=== PATIENT | female | born 1995 | race African-American/Black ===

== ENCOUNTER 2017-05-14 15:50 | Inpatient (IN) | payer OTHER ==
[2017-05-14 16:29] VITALS: BMI 27.5
[2017-05-14] MEDS ORDERED: Misoprostol 200 MCG TAB PR PRN (17:32)
[2017-05-14] MEDS ORDERED: Ondansetron HCl/PF 4 MG/2 ML Vial IVP PRN (17:32)
[2017-05-14] MEDS ORDERED: Promethazine HCl 25 MG/ML VIAL IM PRN (17:32)
[2017-05-14] MEDS ORDERED: Ibuprofen 800 MG TAB PO PRN (17:32)
[2017-05-14] MEDS ORDERED: Lidocaine 1% (PF) 30 ML VIAL SC PRN (17:32)
[2017-05-14] MEDS ORDERED: Carboprost 250 MCG/ML AMP IM PRN (17:32)
[2017-05-14] MEDS ORDERED: Acetaminophen 500 MG TAB PO PRN (17:32)
[2017-05-14] MEDS ORDERED: HYDROcodone/Acetaminophen 5/325 mg Tablet PO PRN ×2 (17:32)
[2017-05-14] MEDS ORDERED: Diphenoxylate HCl/Atropine Tablet PO PRN ×2 (17:32)
[2017-05-14] MEDS ORDERED: LR / Pitocin 40 units/1000 ml 1,000 ML IV PRN (17:32)
[2017-05-14 17:34] LABS: #Eosinphils 0.1 thou/uL (0.0-0.7); #Lymphocytes 1.7 thou/uL (1.20-3.40); #Monocytes 0.5 thou/uL (0.11-0.59); #Neutrophils 4.2 thou/uL (1.40-6.50); %Basophils 0.3 % (0.0-1.0); %Eosinophils 0.8 % (0.0-10.0); %Lymphocytes 26.3 % (21.0-51.0); %Monocytes 7.7 % (0.0-10.0); Hematocrit 23.8 % (36.0-47.0); Mean Platelet Volume 7.9 fL (7.4-10.4); Red Blood Cell (RBC) Count 2.96 mill/uL (4.20-5.40); White Blood Cell (WBC) Count 6.5 thou/uL (4.8-10.8)
[2017-05-14] MEDS ORDERED: LR 500 ML/Oxytocin 10 units 500 ML IV SCH (17:45)
--- NOTE | 2017-05-14 17:48 | PDOC.LDHP ---
Labor and Delivery H&P Chief complaint: contractions HPI: 22 y/o at 39w2d, patient of Theo Jose Rafael, presents with contractions every 5 minutes. Denies VB, LOF, or decreased FM. Has had more headaches over the last few days and increased swelling. ROS neg for HEENT, cv, pulm, gi, gu, neuro, psych, skin, musculoskeletal, or constitutional symptoms other than mentioned above. OB History Details: 2 prior SABs Current complications: none Past Medical History: None Current medications: pre- vitamins, iron Previous surgical history: none Allergies/Adverse Reactions: Allergies Allergy/AdvReac Type Severity Reaction Status Date / Time amoxicillin Allergy Mild Emesis Verified 05/14/17 16:22 Social history: none - Physical Exam Vital signs reviewed and normal: yes General: NAD, breathing through contractions Lungs: nonlabored breathing Abdomen: gravid Extremeties: no edema FHT: category 1 (140s, mod variability, + accels, late decel initially but resolved.) [place] contractions every: 5-6 mins - Vaginal Exam cm dilated: 3 (changed from 1cm in 1 hour; bright light exam negative) Effacement: 90% Station: -1 - OB Labs Blood type: A RH: positive Antibody Screen: negative HIV: negative RPR: negative HEPSAg: negative 1 hour GCT: positive 3 hour GTT: negative GBS: unknown Rubella: immune - Assessment L&D Assessment: term patient in labor elevated blood pressures at term - Plan Plan: admit to L&D, labor augmentation if indicated, informed consent obtained, anesthesia consult for pain management -: HSV+: bright light exam negative; asymptomatic PIH labs pending Dr. Mantilla notified
[2017-05-14 17:56] LABS: ALT (SGPT) 12 U/L (8-55); AST (SGOT) 25 U/L (5-34); Alkaline Phosphatase 213 U/L (40-150); Anion Gap 10 mmol/L (10-20); BUN (Urea Nitrogen) 12 mg/dL (7.0-18.7); Bilirubin, Total 0.2 mg/dL (0.2-1.2); Calc. Creatinine Clearance 179 mL/min (70-130); Calcium 8.8 mg/dL (7.8-10.44); Carbon Dioxide 22 mmol/L (22-29); Chloride 108 mmol/L (98-107); Estimated GFR-MDRD Greater than 90; Protein, Total 6.3 g/dL (6.0-8.3)
[2017-05-14] MEDS: Fentanyl 4 mcg/Marc 0.1% Cadd 100 ML ONE (23:56)
[2017-05-14] MEDS: Lactated Ringer's 1,000 ML IV SCH (23:56)
[2017-05-15] MEDS ORDERED: Fentanyl 4 mcg/Marc 0.1% Cadd 100 ML ONE (01:09)
[2017-05-15] MEDS ORDERED: ePHEDrine/0.9% NaCl/PF SYRINGE 50 mg/10 ml SLOW IVP PRN (01:11)
[2017-05-15] MEDS ORDERED: Promethazine HCl 25 MG/ML VIAL IM PRN (01:11)
[2017-05-15] MEDS ORDERED: diphenhydrAMINE 50 MG/ML VIAL IVP PRN (01:11)
[2017-05-15] MEDS ORDERED: Eucerin (Mineral Oil/Petrolatum,White) 30 gm Jar TOP PRN (01:11)
[2017-05-15] MEDS ORDERED: Naloxone HCl 0.4 mg/ml Vial IVP PRN ×2 (01:11)
[2017-05-15] MEDS ORDERED: Ondansetron HCl/PF 4 MG/2 ML Vial IVP PRN (01:11)
[2017-05-15] MEDS ORDERED: Lactated Ringer's 500 ML IV PRN (01:11)
[2017-05-15] MEDS ORDERED: Acetaminophen 325 MG TAB PO PRN (01:11)
[2017-05-15] MEDS ORDERED: Communication Order-Pharmacy FS SCH (01:15)
[2017-05-15] MEDS ORDERED: Fentanyl 4mcg/Marcaine 0.1% Cassette 100 ML EPIDURAL SCH (01:15)
[2017-05-15] MEDS: Fentanyl 4 mcg/Marc 0.1% Cadd 100 ML ONE (02:31)
[2017-05-15] MEDS ORDERED: Benzocaine/Menthol 20-0.5% 60 ML CAN TOP PRN (04:07)
[2017-05-15] MEDS ORDERED: Lanolin Ointment 7 GM TUBE TOP PRN (04:07)
[2017-05-15] MEDS ORDERED: Milk Of Magnesia 30 ML UDCUP PO PRN (04:07)
[2017-05-15] MEDS ORDERED: Adacel (T-DAP) 0.5 ML VIAL IM ONE (04:07)
[2017-05-15] MEDS ORDERED: diphenhydrAMINE 25 MG CAP PO PRN (04:07)
[2017-05-15] MEDS ORDERED: LR / Pitocin 40 units/1000 ml 1,000 ML IV SCH (04:07)
[2017-05-15] MEDS ORDERED: Bisacodyl 10 MG SUPP PR PRN (04:07)
[2017-05-15] MEDS: Lactated Ringer's 1,000 ML IV SCH (04:47)
--- NOTE | 2017-05-15 05:45 | DN ---
DATE OF PROCEDURE: 05/15/2017 at 2 a.m. PREOPERATIVE DIAGNOSIS: Term . POSTOPERATIVE DIAGNOSIS: Term . PROCEDURE: Spontaneous vaginal delivery with repair of secondary midline episiotomy, Pitocin augment ation. SURGEON: Theo Mantilla M.D. PROCEDURE: This 22-year-old black female taken to delivery room, complete and pushing. The pa tient prepped and draped sterilely. Delivered a baby girl with Apgars 8 at 1 minute and 9 at 5 minut es. Baby did breathe and cry vigorously upon delivery. Delivered placenta, 3-vessel intact. Repair ed a secondary midline episiotomy with 3-0 chromic. Estimated blood loss was 350 mL. Mother and bab y did well.
[2017-05-15] MEDS: Acetaminophen/Codeine 30-300mg Tablet PO PRN ×2 (08:55→22:24)
[2017-05-15] MEDS: Ferrous Sulfate 325 MG TAB PO SCH ×2 (08:58→17:08)
[2017-05-15] MEDS: Prenatal Vitamin 1 TAB PO SCH (08:59)
[2017-05-15] MEDS: Docusate (Surfak) 240 MG CAP PO SCH ×2 (08:59→22:21)
[2017-05-15] MEDS ORDERED: Bupivacaine/Epinephrine 0.25% 30 ML VIAL ONE (14:44)
[2017-05-16 05:10] LABS: Hematocrit 19.5 % (36.0-47.0); Mean Platelet Volume 7.7 fL (7.4-10.4); Red Blood Cell (RBC) Count 2.42 mill/uL (4.20-5.40)
[2017-05-16] MEDS: Ferrous Sulfate 325 MG TAB PO SCH ×2 (09:34→18:00)
[2017-05-16] MEDS: Docusate (Surfak) 240 MG CAP PO SCH (09:34)
[2017-05-16] MEDS: Prenatal Vitamin 1 TAB PO SCH (09:34)
[2017-05-16] MEDS: Acetaminophen/Codeine 30-300mg Tablet PO PRN ×2 (09:36→18:00)
[2017-05-17] MEDS: Docusate (Surfak) 240 MG CAP PO SCH ×2 (07:39→08:39)
[2017-05-17 08:15] VITALS: BP 133/83; TEMP 98.3
[2017-05-17] MEDS: Ferrous Sulfate 325 MG TAB PO SCH (08:39)
[2017-05-17] MEDS: Prenatal Vitamin 1 TAB PO SCH (08:39)
[2017-05-17] MEDS: Acetaminophen/Codeine 30-300mg Tablet PO PRN (08:42)
[2017-05-17 08:47] LABS: #Basophils 0.1 thou/uL (0.0-0.2); #Eosinphils 0.1 thou/uL (0.0-0.7); #Lymphocytes 1.9 thou/uL (1.20-3.40); #Monocytes 0.6 thou/uL (0.11-0.59); #Neutrophils 6.4 thou/uL (1.40-6.50); %Basophils 0.9 % (0.0-1.0); %Eosinophils 1.2 % (0.0-10.0); %Lymphocytes 20.5 % (21.0-51.0); %Monocytes 6.3 % (0.0-10.0); Hematocrit 21.5 % (36.0-47.0); Mean Platelet Volume 7.7 fL (7.4-10.4); Red Blood Cell (RBC) Count 2.66 mill/uL (4.20-5.40)
[2017-05-17 09:10] LABS: Iron 24 ug/dL (50-170)
== END 2017-05-17 14:00 | disposition home or self-care (01) | DRG 775 ==
LOC: L&D/OP 15:50 → L&D 17:50 → 3SW 05-15 04:05
PROVIDERS: ADMIT Family Medicine; ATTEND Family Medicine
PROC: 10E0XZZ Delivery of Products of Conception, External Approach (ICD-10-PCS; principal; 2017-05-15)
PROC: 0KQM0ZZ Repair Perineum Muscle, Open Approach (ICD-10-PCS; 2017-05-15)
DX: O70.1 Second degree perineal laceration during delivery (principal); Z37.0 Single live birth; Z3A.39 39 weeks gestation of pregnancy
CPT/HCPCS: 36415; 80053; 82570; 82728; 83540; 83550; 84156; 85025; 85027; 86780; 86850; 86900; 86901; 87340; J2001; J2405; J7120

== ENCOUNTER 2018-11-07 12:35 | Outpatient (CLI) | payer OTHER ==
--- NOTE | 2018-11-07 13:38 | ULT ---
Complete obstetrical ultrasound INDICATION: 36 weeks gestation; evaluate well being and anatomy TECHNIQUE: Grayscale, M-mode Doppler and Doppler images were obtained of the abdomen and pelvis to ev aluate the patient's known . COMPARISON: None. FINDINGS: Number of gestations: Single. Presentation: Cephalic. Placental location: Anterior Previa: No evidence for previa. Cervical length: Not assessed PATRICK: 8.0 cm. heart rate: 149 bpm. Biparietal diameter: 8.89cm, 36 weeks 0 days, Not calculated.. Head circumference: 32.17 cm, 36 weeks 3 days, Not calculated. Abdominal circumference: 32.61 cm, 36 weeks 4 days, Not calculated. Femoral length: 6.94cm, 35 weeks 5 days, Not calculated. Estimated weight: 2877 g +/- 420g 6 lbs. 5 oz., 54th percentile SURVEY: head: Normal appearing. Cerebellum: Not well assessed. Cisterna magna: Not well assessed Lateral ventricles: Not well assessed 4 chamber heart: Normal appearing.. Stomach: Normal appearing. Kidneys: Normal appearing. Cord insertion: Normal appearing. Bladder: Normal appearing. Spine: Normal appearing. Lips and nose: Normal appearing. Extremities: Not well assessed Three-vessel CORD: Normal appearing. The average gestational age by ultrasound is 36 weeks 2 dayswith estimated due date of December 03, 2018. The estimated dates by clinical data is 36 weeks 1 daywith estimated due date of December 04, 2018. IMPRESSION: 1. Single live intrauterine gestation with size and dates as above. 2. The PATRICK was 8 cm. This is just about 5th percentile for gestational age. Clinical sonographic foll ow-up is recommended.
== END 2018-11-07 12:36 | disposition home or self-care (01) ==
LOC: BICULT 12:35
PROVIDERS: ATTEND Family Medicine
DX: Z34.93 Encounter for supervision of normal pregnancy, unspecified, third trimester (principal); Z3A.36 36 weeks gestation of pregnancy
CPT/HCPCS: 76805; 76815

== ENCOUNTER 2018-11-20 21:25 | Inpatient (IN) | payer OTHER ==
[2018-11-20] MEDS ORDERED: Ondansetron PF 4 MG/2 ML Vial IVP PRN (22:50)
[2018-11-20] MEDS ORDERED: Lactated Ringer's 1,000 ML IV SCH (22:50)
[2018-11-20] MEDS ORDERED: Butorphanol Tartrate 1 MG/ML VIAL SLOW IVP PRN (22:50)
[2018-11-20] MEDS ORDERED: Acetaminophen 500 MG TAB PO PRN (22:50)
[2018-11-20] MEDS ORDERED: Promethazine HCl 25 MG/ML VIAL IM PRN (22:51)
[2018-11-20] MEDS ORDERED: Lidocaine 1% (PF) 30 ML VIAL SC PRN (23:00)
[2018-11-20] MEDS ORDERED: NS w/ Oxytocin 10 units 500 ML IV SCH ×2 (23:00)
[2018-11-20] MEDS ORDERED: Misoprostol 200 MCG TAB RC PRN (23:00)
[2018-11-20] MEDS ORDERED: Diphenoxylate HCl/Atropine Tablet PO PRN ×2 (23:00)
[2018-11-20] MEDS ORDERED: Methylergonovine 0.2 MG/ML VIAL IM PRN (23:00)
[2018-11-20] MEDS ORDERED: Carboprost 250 MCG/ML AMP IM PRN (23:00)
[2018-11-20 23:08] VITALS: BMI 27.8
[2018-11-20] MEDS ORDERED: Fentanyl 4 mcg/Bup 0.1% Cadd 100 ML ONE (23:20)
[2018-11-20 23:49] LABS: Hemoglobin 9.4 g/dL (12.0-16.0); Mean Corpuscular HGB CONC 32.7 g/dL (32.0-36.0); Mean Corpuscular Hemoglobin 25.3 pg (27.0-31.0); Mean Corpuscular Volume 77.3 fL (78.0-98.0); Mean Platelet Volume 8.3 fL (7.4-10.4); Platelet Count 319 thou/uL (130-400); RBC Distribution Width 14.9 % (11.5-14.5); White Blood Cell (WBC) Count 8.9 thou/uL (4.8-10.8)
[2018-11-21] MEDS: HYDROcodone/Acetaminophen 5/325 mg Tablet PO PRN ×4 (00:13→20:56)
[2018-11-21] MEDS: NS / Oxytocin 40 units/1000ml 1,000 ML IV SCH ×2 (00:14→02:28)
[2018-11-21 00:27] LABS: Syphilis Antibody Nonreactive (Nonreactive); Syphilis Antibody Index 0.03 S/CO (<1.00 Non-Reactive)
[2018-11-21 01:35] LABS: HBSAg Index 0.61 S/CO (0-0.99); Hep B Surf Ag NonReactive S/CO (NonReactive)
[2018-11-21] MEDS ORDERED: Bisacodyl 10 MG SUPP PR PRN (02:26)
[2018-11-21] MEDS ORDERED: Benzocaine-Menthol 82.5 ML CAN TOP PRN (02:26)
[2018-11-21] MEDS ORDERED: NS / Oxytocin 40 units/1000ml 1,000 ML IV SCH (02:26)
[2018-11-21] MEDS ORDERED: Milk Of Magnesia 30 ML UDCUP PO PRN (02:26)
[2018-11-21] MEDS: Ibuprofen 800 MG TAB PO PRN ×2 (04:52→14:32)
[2018-11-21 06:17] LABS: Hemoglobin 7.2 g/dL (12.0-16.0); Mean Corpuscular HGB CONC 32.6 g/dL (32.0-36.0); Mean Corpuscular Hemoglobin 25.5 pg (27.0-31.0); Mean Corpuscular Volume 78.1 fL (78.0-98.0); Mean Platelet Volume 8.2 fL (7.4-10.4); Platelet Count 263 thou/uL (130-400); RBC Distribution Width 14.8 % (11.5-14.5); Red Blood Cell (RBC) Count 2.82 mill/uL (4.20-5.40); White Blood Cell (WBC) Count 10.7 thou/uL (4.8-10.8)
[2018-11-21] MEDS: Prenatal Vitamin 1 TAB PO SCH (08:44)
--- NOTE | 2018-11-21 08:44 | DN ---
DATE OF PROCEDURE: 11/20/2018 PREOPERATIVE DIAGNOSIS: Term . POSTOPERATIVE DIAGNOSIS: Term . PROCEDURE: Spontaneous vaginal delivery. ANESTHESIA: None. DESCRIPTION OF PROCEDURE: This 23-year-old black female, G2, P1 was taken to the delivering room for completing pushing. Prepped and draped sterilely. Delivered a baby boy with Apgars of 8 at 1 minute and 9 at 5 minutes. Baby did breathe and cry vigorously upon delivery. Delivered the placenta with 3-vessel intact. No lacerations present. Estimated blood [id number] cc. Mother and baby did very well. Job ID: [id number]
[2018-11-21] MEDS: Docusate Calcium (SURFAK) 240 MG CAP PO SCH ×2 (08:45→22:54)
[2018-11-21] MEDS: Ferrous Sulfate 325 MG TAB PO SCH ×2 (08:45→18:04)
[2018-11-21] MEDS ORDERED: Adacel (T-DAP) 0.5 ML SYRINGE IM ONE (09:00)
[2018-11-21] MEDS ORDERED: HYDROcodone/Acetaminophen 5/325 mg Tablet PO PRN ×2 (10:01→10:02)
[2018-11-21] MEDS ORDERED: Ibuprofen 800 MG TAB PO PRN (10:02)
[2018-11-22 08:21] VITALS: BP 103/71; TEMP 98.4
[2018-11-22] MEDS: Ferrous Sulfate 325 MG TAB PO SCH (09:25)
[2018-11-22] MEDS: Prenatal Vitamin 1 TAB PO SCH (09:25)
[2018-11-22] MEDS: Docusate Calcium (SURFAK) 240 MG CAP PO SCH (09:25)
== END 2018-11-22 12:40 | disposition home or self-care (01) | DRG 807 ==
LOC: L&D/OP 21:25 → L&D 23:29 → 3SW 11-21 02:45
PROVIDERS: ADMIT Family Medicine; ATTEND Family Medicine
PROC: 10E0XZZ Delivery of Products of Conception, External Approach (ICD-10-PCS; principal; 2018-11-20)
DX: O80 Encounter for full-term uncomplicated delivery (principal); Z37.0 Single live birth; Z3A.38 38 weeks gestation of pregnancy
CPT/HCPCS: 36415; 85027; 86780; 86850; 86900; 86901; 87340; 99285; J0595; J2001